=== PATIENT | male | born 1985 | race Caucasian/White ===

== ENCOUNTER 2018-12-24 15:16 | Day surgery (SDC) | payer OTHER ==
[~2018-12-24] VITALS: Ht 175.3 cm; Wt 80.7 kg
[2018-12-24 15:16] VITALS: BP_SYST 125
[2018-12-24] MEDS ORDERED: NACL 0.9% 1,000 ML IV ONE (15:30)
[2018-12-24] MEDS ORDERED: GLUCAGON,HUMAN RECOMBINANT 1 MG VIAL IVP ONE (15:30)
[2018-12-24] MEDS ORDERED: PANTOPRAZOLE SODIUM 40 MG/VIAL (PROTONIX) IVP ONE (15:30)
[2018-12-24] MEDS ORDERED: MORPHINE 4 MG/ML INJ. SYRINGE IVP ONE ×3 (15:30→16:45)
[2018-12-24] MEDS ORDERED: ONDANSETRON HCL 4 MG/2 ML VIAL IVP ONE (15:30)
[2018-12-24 15:46] LABS: CALCIUM 9.1 mg/dL (8.4-11.0); CREATININE 0.95 mg/dL (0.55-1.30); POTASSIUM 3.3 mmol/L (3.5-5.1)
[2018-12-24 15:47] LABS: BASOPHILS # (AUTO) 0.1 K/uL (0.0-0.2); BASOPHILS % (AUTO) 1.2 % (0.0-2.0); EOSINOPHILS # (AUTO) 0.4 K/uL (0.0-0.4); EOSINOPHILS % (AUTO) 4.9 % (0.0-4.0); HEMATOCRIT 44.7 % (36-54); HEMOGLOBIN 15.4 g/dL (14.0-18.0); LYMPHOCYTES # (AUTO) 2.5 K/uL (1.0-5.5); LYMPHOCYTES % (AUTO) 33.1 % (20.5-51.5); MEAN CORPUSCULAR HEMOGLOBIN 31 pg (27-31); MEAN CORPUSCULAR HGB CONC 34 % (32-36); MEAN CORPUSCULAR VOLUME 90 fL (79.0-98.0); MONOCYTES % (AUTO) 12.7 % (1.7-9.3); NEUTROPHILS # (AUTO) 3.7 K/uL (1.8-7.7); NEUTROPHILS % (AUTO) 48.1 % (40.0-70.0); PLATELET COUNT (AUTO) 369 K/uL (130-430); RED BLOOD CELL COUNT(AUTO) 4.98 MIL/uL (4.2-6.2); RED CELL DISTRIBUTION WIDTH 13.2 % (9.0-15.0); WHITE BLOOD COUNT (AUTO) 7.7 K/uL (4.8-10.8)
[2018-12-24 15:50] LABS: PROTHROMBIN TIME 10.1 SECS (9.5-12.5)
[2018-12-24 15:52] LABS: ALBUMIN 4.1 g/dL (3.4-4.8); TOTAL BILIRUBIN 0.5 mg/dL (0.0-1.0)
[2018-12-24] MEDS ORDERED: LORazepam 2 MG/ML VIAL (FOR ER USE) IVP ONE ×2 (16:15→16:45)
[2018-12-24] MEDS ORDERED: MEPERIDINE HCL/PF 100 MG/ML AMP ONE (17:23)
[2018-12-24] MEDS ORDERED: SIMETHICONE 40 MG/0.6 ML ML ONE (17:23)
[2018-12-24] MEDS ORDERED: MIDAZOLAM HCL 5 MG/5 ML VIAL ONE (17:24)
[2018-12-24] MEDS ORDERED: PIPERACILLIN/TAZO 3.375 GM in NS 50 ML IV ONE (18:30)
[2018-12-24] MEDS ORDERED: DIPHENHYDRAMINE INJ 50 MG/ML VIAL ONE (18:35)
[2018-12-24 19:00] VITALS: BP_SYST 137
[2018-12-24] MEDS ORDERED: MORPHINE 4 MG/ML INJ. SYRINGE IVP PRN (19:00)
[2018-12-24] MEDS ORDERED: ONDANSETRON HCL 4 MG/2 ML VIAL IM PRN (19:00)
[2018-12-24] MEDS ORDERED: LORazepam 2 MG/ML VIAL IVP PRN (19:00)
[2018-12-24] MEDS ORDERED: D5LR 1,000 ML IV SCH (19:00)
[2018-12-24 19:09] VITALS: BP_SYST 124
[2018-12-24 19:50] VITALS: BP_SYST 132
[2018-12-24] MEDS ORDERED: GASTROGRAFIN 120 ML ONE (20:01)
[2018-12-24] MEDS ORDERED: PANTOPRAZOLE SODIUM 40 MG/VIAL (PROTONIX) IVP SCH (21:00)
[2018-12-24] MEDS ORDERED: PIPERACILLIN/TAZOBACTAM 3.375 GM/VIAL (ZOSYN) IV ONE (21:03)
[2018-12-24 21:32] LABS: BASOPHILS % (AUTO) 0.4 % (0.0-2.0); EOSINOPHILS % (AUTO) 0.4 % (0.0-4.0); HEMATOCRIT 40.6 % (36-54); LYMPHOCYTES # (AUTO) 0.9 K/uL (1.0-5.5); LYMPHOCYTES % (AUTO) 7.8 % (20.5-51.5); MEAN CORPUSCULAR HEMOGLOBIN 31 pg (27-31); MEAN CORPUSCULAR HGB CONC 35 % (32-36); MEAN CORPUSCULAR VOLUME 90 fL (79.0-98.0); MONOCYTES # (AUTO) 0.9 K/uL (0.0-1.0); MONOCYTES % (AUTO) 8.4 % (1.7-9.3); NEUTROPHILS # (AUTO) 9.4 K/uL (1.8-7.7); PLATELET COUNT (AUTO) 308 K/uL (130-430); RED CELL DISTRIBUTION WIDTH 13.1 % (9.0-15.0); WHITE BLOOD COUNT (AUTO) 11.3 K/uL (4.8-10.8)
[2018-12-25] MEDS ORDERED: PIPERACILLIN/TAZO 3.375/DEX-IS 50 ML IV SCH
== END 2018-12-24 22:54 | disposition left against medical advice (07) ==
LOC: SED 15:16 → SDS 18:07 → STU 18:50 → SDS 19:20
PROVIDERS: ATTEND Internal Medicine
DX: T18.128A Food in esophagus causing other injury, initial encounter (principal); X58.XXXA Exposure to other specified factors, initial encounter; Y93.89 Activity, other specified; Y92.89 Other specified places as the place of occurrence of the external cause; Y99.9 Unspecified external cause status; Z79.899 Other long term (current) drug therapy; Z98.890 Other specified postprocedural states; Z79.01 Long term (current) use of anticoagulants
CPT/HCPCS: 36415; 43247; 71250; 74220; 80053; 85025; 85610; 85730; 87040; C9113; J1200; J1610; J2060; J2175; J2250; J2270; J2405; J2543; J7030; J7120; Q9963; 96361; 96374; 96375; 96376; 99284